=== PATIENT | male | born 1935 | race Caucasian/White ===

== ENCOUNTER 2019-12-16 12:06 | Emergency (ER) | payer MEDICARE, SELFPAY ==
[2019-12-16 12:15] VITALS: BP 125/73; PULSE 116; RESP 20; TEMP 36.1; O2SAT 99
--- NOTE | 2019-12-16 13:19 | ED.GENADULT ---
HPI - General Adult General Chief complaint: Urogenital-Male Stated complaint: problems with cath Time Seen by Provider: 12/16/19 12:28 Source: patient Mode of arrival: ambulatory Limitations: no limitations History of Present Illness HPI narrative: Patient is a 83-year-old male who presents to emergency department for evaluation of his Pineda catheter not draining patient notes that he change the bag and then it was not draining thought he may have some mild discomfort in the suprapubic region on arrival to emergency department patient notes that the bag is filling with urine and he is feeling better. Patient is traveling from out of town. Patient was recently on antibiotics for urinary tract infection that he finished. Patient denies fever chills nausea vomiting hematuria or other complaints. Patient notes that he has had the indwelling catheter long-term Related Data Allergies Allergy/AdvReac Type Severity Reaction Status Date / Time No Known Allergies Allergy Verified 12/16/19 12:19 Review of Systems Review of Systems: All systems reviewed & are unremarkable except as noted in HPI and below Exam Narrative: Exam Narrative: GENERAL: Well-appearing, well-nourished, and in no acute distress. HEAD: Normocephalic, atraumatic. EYES: PERRLA and EOMI. ENT: Nares clear, no rhinorrhea or epistaxis. Mucous membranes moist. CHEST: Clear to auscultation. No respiratory distress. No wheezes rales or rhonchi HEART: Regular rate and rhythm. No murmur heard. Normal peripheral pulses. ABDOMEN: Soft, nontender, nondistended EXTREMITIES: Normal range of motion. No edema. SKIN: Warm, dry, no rash. NEURO: No focal deficits. Alert and oriented x3. Cranial nerves II through XII grossly intact PSYCH: Normal mood and affect. Course Course Emergency Course: Patient in the room at this time in no distress does not want to wait for his urine results or blood work and is requesting to be discharged patient afebrile nontoxic-appearing Vital Signs Vital signs: Vital Signs Temperature 96.9 F L 12/16/19 12:15 Pulse Rate 116 H 12/16/19 12:15 Respiratory Rate 20 12/16/19 12:15 Blood Pressure 125/73 12/16/19 12:15 Pulse Oximetry 99 12/16/19 12:15 Temperature 96.9 F L 12/16/19 12:15 Pulse Rate 116 H 12/16/19 12:15 Respiratory Rate 20 12/16/19 12:15 Blood Pressure 125/73 12/16/19 12:15 Pulse Oximetry 99 12/16/19 12:15 Medical Decision Making MDM Narrative Medical decision making narrative: Patient in the room in no distress aware of case findings treatment plan and diagnosis agreeing to follow-up as directed or to return if symptoms worsen or concerns patient did not wish to wait for his blood work results to be resulted and wanted to leave prior to receiving them so he will be signing out AMA. Patient notes he is on vacation and does not want to wait that this is hampering his vacation plans. Vital Signs Vital Signs: Vital Signs Temperature 96.9 F L 12/16/19 12:15 Pulse Rate 116 H 12/16/19 12:15 Respiratory Rate 12/16/19 12:15 Blood Pressure 125/73 12/16/19 12:15 Pulse Oximetry 99 12/16/19 12:15 Temperature 96.9 F L 12/16/19 12:15 Pulse Rate 116 H 12/16/19 12:15 Respiratory Rate 12/16/19 12:15 Blood Pressure 125/73 12/16/19 12:15 Pulse Oximetry 99 12/16/19 12:15 Lab Data Labs: Urine Characteristics Clear Discharge Plan Discharge Clinical Impression: Dysuria Patient Disposition: Left Against Medical Advice Condition: Stable Instructions: Pineda Catheter Placement and Care (ED) Additional Instructions: Follow up with urology in the next 2-3 days for re-evaluation. Antibiotics as prescribed. Increase fluid intake. Tylenol for pain and or fever if needed. Follow up with your doctor for further care. Call your doctor or return to the emergency department if needed for worsening symptoms
[2019-12-16 13:25] LABS: Basophils Absolute Auto 0.1 K/mm3 (0.0-0.1); Basophils Percent Auto 0.6 % (0.2-1.2); Eosinophils Absolute Auto 0.1 K/mm3 (0-0.3); Eosinophils Percent Auto 1.3 % (0-4.4); Hematocrit 42.1 % (42.0-52.0); Hemoglobin 13.7 g/dL (14.0-18.0); Immature Granulocyte Absolute 0.04 K/mm3 (0.00-0.031); Immature Granulocyte Percent A 0.5 % (0-0.5); Lymphocytes Absolute Auto 0.82 K/mm3 (0.9-3.2); Lymphocytes Percent Auto 9.5 % (18.3-44.2); Mean Corpuscular HGB Conc 32.5 g/dl (32-36); Mean Corpuscular Hemoglobin 28.7 pg (26-34); Mean Corpuscular Volume 88.1 fl (80-100); Mean Platelet Volume 10.4 fl (7.4-10.4); Monocytes Absolute Auto 0.4 K/mm3 (0.1-0.6); Neutrophils Absolute Auto 7.1 K/mm3 (1.3-6.7); Neutrophils Percent Auto 83.1 % (45.5-73.1); Platelet Count Result 199 k/mm3 (150-375); Red Blood Count 4.78 M/mm3 (4.6-6.20); Red Cell Distribution Width 13.7 % (11.5-14.5); White Blood Count 8.6 K/mm3 (4.5-10.0)
[2019-12-16 13:35] LABS: Add Urine Microscopic? YES; Appearance Urine Cloudy (Clear); Bacteria Urine Trace /hpf; Bilirubin Urine Negative (Negative); Blood Urine 2+ (Negative); Color Urine Yellow (Yellow); Glucose Urine UA Negative (Negative); Ketones Urine Negative (Negative); Leukocyte Esterase Ur 3+ LEU/UL (Negative); Mucus Urine Rare /lpf; Nitrate Urine Positive (Negative); Protein Urine 1+ mg/dL (Negative); Specific Grav Ur 1.009 (1.001-1.035); Urobilinogen Urine Negative mg/dL (<2.0); WBC Urine 51-75 /hpf
[2019-12-16 13:37] LABS: Anion Gap 13 mmol/L (8-16); Blood Urea Nitrogen 23 mg/dL (9-20); Calcium 9.8 mg/dL (8.4-10.2); Carbon Dioxide 28 mmol/L (22-30); Chloride 97 mmol/L (98-107); Estimated CRCL calculation 33 ml/min; Estimated Glomerular Filt Rate 41; Glucose 134 mg/dL (75-110); Potassium 4.1 mmol/L (3.4-5.0); Sodium 138 mmol/L (137-145)
[2019-12-16 13:41] VITALS: BP 106/65; PULSE 102; RESP 18; O2SAT 94
== END 2019-12-16 13:42 | disposition left against medical advice (07) ==
PROVIDERS: Emergency Medicine Emergency Medical Services; Emergency Provider Emergency Medicine
DX: R30.0 Dysuria (principal)
CPT/HCPCS: 36415; 80048; 81001; 85025; 87077; 87086; 87088; 87186; 99283